=== PATIENT | male | born 1995 | race Caucasian/White ===

== ENCOUNTER 2020-02-28 18:51 | Emergency (ER) | payer OTHER, SELFPAY ==
[2020-02-28 19:02] VITALS: BP 128/70; PULSE 73; RESP 14; TEMP 36.7; O2SAT 97; BMI 26.4
--- NOTE | 2020-02-28 19:23 | ED.SKABFB ---
HPI - Skin/Abscess/Foreign Bdy General Chief complaint: Skin/Abscess/Foreign Body Stated complaint: states has an infection Time Seen by Provider: 02/28/20 19:20 Source: patient Mode of arrival: Ambulatory Limitations: no limitations History of Present Illness HPI narrative: 24M non smoker without chronic medical problems presents with a friend and the chief complaint of a painful red, swollen lump on his right lower back. [place] and a referral to dermatology. He denies fever or chills. He denies any spontaneous drainage or systemic problems. He is here because he can't take the pain anymore. complaint: abscess/boil Onset (ago): day(s) Tetanus up to date: yes Location: back Severity: moderate Quality: aching Pain Consistency: constant Relieving factors: none Associated symptoms: denies other symptoms Treatments prior to arrival: antibiotic Related Data Previous Rx's Medication Instructions Recorded doxycycline hyclate 100 mg PO BID #20 tab 02/28/20 Allergies Allergy/AdvReac Type Severity Reaction Status Date / Time No Known Drug Allergies Allergy Verified 02/28/20 19:02 Review of Systems Constitutional Constitutional: Denies chills, Denies fatigue, Denies fever(s), Denies frequent falls, Denies lethargy and Denies weakness Eyes Eyes: Denies change in vision, Denies eye discharge, Denies irritation and Denies loss of vision ENT Ears, Nose, Mouth, and Throat: Denies change in voice, Denies dizziness, Denies neck pain, Denies sore throat and Denies throat swelling Cardiovascular Cardiovascular: Denies chest pain, Denies irregular heart rhythm, Denies lightheadedness, Denies palpitations, Denies dyspnea, Denies dyspnea on exertion and Denies orthopnea Respiratory Respiratory: Denies cough, Denies dyspnea, Denies dyspnea on exertion and Denies wheezing Gastrointestinal Gastrointestinal: Denies abdominal pain, Denies change in bowel habits, Denies diarrhea, Denies nausea and Denies vomiting Musculoskeletal Musculoskeletal: Denies neck pain and Denies numbness Integumentary/Breasts Skin/Breast: Denies pruritus, Reports erythema, Denies rash, Reports skin pain and Denies wounds Neurologic Neurologic: Denies behavioral changes, Denies confusion, Denies dizziness, Denies frequent falls, Denies loss of vision, Denies numbness and Denies weakness Psychiatric Psychiatric: Denies anxiety, Denies behavioral changes, Denies confusion, Denies depression, Denies homicidal ideation and Denies suicidal ideation Endocrine Endocrine: Denies fatigue, Denies flushing and Denies palpitations Hematologic/Lymphatic Hematologic/Lymphatic: Denies easy bruising Allergic/Immunologic Allergic/Immunologic: Denies urticaria, Denies throat swelling and Denies wheezing Patient History Social History Smoking Status: Unknown if ever smoked Smoking Status: Unknown if ever smoked alcohol intake frequency: holidays/special occasions only Substance Use Type: does not use Exam Narrative Exam Narrative: GEN: AOx3 and in mild distress EYES: Pupils are equal, round, and reactive to light and accommodation. Extraoccular muscles are intact bilaterally. There is no subconjunctival hemorrhage or exudate. CHEST: Lungs are clear to auscultation bilaterally and free of wheezes, rales, or rhonchi. Heart rate is regular rhythm, there are no murmurs, clicks, rubs, or gallops. There is no chest wall tenderness. ABD: Abdomen is soft and nontender. There is no guarding or rebound. Bowel sounds are normal in all 4 quadrants. There is no mass or organomegaly. EXT: Full painless ROM of all extremities with no loss of sensation or strength. SKIN: 2 x 2 cm cutaneous abscess on right lower back with minimal fluctuance and minimal surrounding erythema Warm, pink, and dry. No erythema or rash Initial Vital Signs Initial Vital Signs: Vital Signs Temperature 98.1 F 02/28/20 19:02 Pulse Rate 73 02/28/20 19:02 Respiratory Rate 14 02/28/20 19:02 Blood Pressure 128/70 02/28/20 19:02 Pulse Oximetry 97 02/28/20 19:02 Procedures Abscess I/D I&D #1: Site: back Side (if applicable): right Local Anesthetic: lidocaine 1% and with bicarb Amount of anesthesia used (mL): 4 Technique: incised with #11 blade Amount of fluid expressed (mL): 6 Irrigation: Yes Packing used?: none Course Orders Ordered: Discontinued Medications Lidocaine/Sodium Bicarbonate (Buffered Lidocaine 10 Ml Syr) 10 ml INJ NOW ONE Stop: 02/28/20 19:31 Last Admin: 02/28/20 19:37 Dose: 10 ml Documented by: BERTA Vital Signs Vital signs: Vital Signs - 8 hr 02/28/20 19:02 02/28/20 19:55 Temperature 98.1 F Pulse Rate 73 61 Respiratory Rate 14 12 Blood Pressure 128/70 115/75 Pulse Oximetry 97 97 Discharge Plan Departure Patient Disposition: Home Clinical Impression: Abscess of skin or subcutaneous tissue Qualifiers: Site of cutaneous abscess: trunk Site of cutaneous abscess of trunk: back Qualified Code(s): L02.212 - Cutaneous abscess of back [any part, except buttock] Discharge Date/Time: 02/28/20 19:58 Instructions: DI for Skin Abscess Activity Restrictions/Additional Instructions: *You have been diagnosed with [superficial cutaneous abscess status post incision and drainage] *What to do: *Take medications as directed *Follow up with your primary care provider in 2-3 days, call for an appointment. Let them know you were seen in the Emergency Department and that we ask that you be seen in follow up *Return to ER if you should have any new, worsening or concerning symptoms Prescriptions: New doxycycline hyclate 100 mg tablet 100 mg PO BID Qty: 20 RF: 0
[2020-02-28] MEDS: LIDO 1%/SOD BICARB 8.4% (10ML) 10 ML SYRINGE INJ (19:37)
[2020-02-28 19:55] VITALS: BP 115/75; PULSE 61; RESP 12; O2SAT 97
== END 2020-02-28 19:58 | disposition home or self-care (01) ==
PROVIDERS: Emergency Provider Emergency Medicine
DX: L02.212 Cutaneous abscess of back [any part, except buttock and flank] (principal)
CPT/HCPCS: 10060; 99283

== ENCOUNTER 2020-08-01 19:57 | Emergency (ER) | payer OTHER, SELFPAY ==
[2020-08-01 20:02] VITALS: BP 136/90; PULSE 77; RESP 20; TEMP 36.7; O2SAT 98; BMI 26.4
[2020-08-01] MEDS: IBUPROFEN 400 MG TABLET PO (20:14)
[2020-08-01] MEDS: ACETAMINOPHEN 325 MG TABLET 975 MG PO (20:14)
--- NOTE | 2020-08-01 21:57 | ED_ITS ---
HPI - General Adult General Chief complaint: Upper Respiratory Symptoms Stated complaint: right side swelling of tonsils Time Seen by Provider: 08/01/20 21:45 Source: patient Mode of arrival: Ambulatory Limitations: no limitations History of Present Illness HPI narrative: Otherwise healthy 24-year-old male here for evaluation of right- sided tonsillar swelling and pustules. He has not had any fever. No cough. He does have some swollen lymph nodes on the right side of his neck. Has not tried anything for symptoms prior to arrival. Related Data Previous Rx's Medication Instructions Recorded doxycycline hyclate 100 mg PO BID #20 tab 02/28/20 Allergies Allergy/AdvReac Type Severity Reaction Status Date / Time No Known Drug Allergies Allergy Verified 08/01/20 20:00 Review of Systems Constitutional Constitutional: Denies fever(s) ENT Ears, Nose, Mouth, and Throat: Denies dizziness, Reports sore throat and Denies tongue swelling Cardiovascular Cardiovascular: Denies chest pain and Denies dyspnea Respiratory Respiratory: Denies dyspnea Gastrointestinal Gastrointestinal: Denies abdominal pain Integumentary/Breasts Skin/Breast: Denies rash Neurologic Neurologic: Denies behavioral changes and Denies dizziness Psychiatric Psychiatric: Denies behavioral changes Hematologic/Lymphatic On Anticoagulants: No Allergic/Immunologic Allergic/Immunologic: Denies urticaria and Denies tongue swelling Patient History Medical History Healthy adult Social History Smoking Status: Never smoker Smoking Status: Never smoker alcohol intake frequency: holidays/special occasions only Substance Use Type: does not use Exam Initial Vital Signs Initial Vital Signs: Vital Signs Temperature 98.0 F 08/01/20 20:02 Pulse Rate 77 08/01/20 20:02 Respiratory Rate 20 08/01/20 20:02 Blood Pressure 136/90 08/01/20 20:02 Pulse Oximetry 98 08/01/20 20:02 Const General: cooperative and comfortable Limitations: mental status not altered HENMT Head: normal to inspection and normocephalic Ears: TM's normal bilaterally Nose: external nose normal Face and sinus: normal facial exam Mouth: oral mucosae normal, lip normal and tongue normal Teeth and gingiva: dentition normal Throat: uvula midline and other (Exudates and ulcerations for right tonsil) Neck Lymphatic: lymphadenopathy (Right anterior cervical) Resp Effort & Inspection: normal respiratory effort Cardio Rate: regular rate Course Orders Ordered: ED Orders 08/01/20 20:49 Throat Culture Stat Discontinued Medications Acetaminophen (Acetaminophen 325 Mg Tablet) 975 mg PO NOW ONE Stop: 08/01/20 20:08 Last Admin: 08/01/20 20:14 Dose: Not Given Documented by: LOLA Acetaminophen (Acetaminophen 325 Mg Tablet) 975 mg PO NOW ONE Stop: 08/01/20 20:12 Last Admin: 08/01/20 20:14 Dose: 975 mg Documented by: EMERITA Dexamethasone (Dexamethasone 4 Mg Tablet) 12 mg PO NOW ONE Stop: 08/01/20 21:59 Last Admin: 08/01/20 22:02 Dose: 12 mg Documented by: EMERITA Ibuprofen (Ibuprofen 400 Mg Tablet) 400 mg PO NOW ONE Stop: 08/01/20 20:08 Last Admin: 08/01/20 20:14 Dose: Not Given Documented by: LOLA Ibuprofen (Ibuprofen 400 Mg Tablet) 400 mg PO NOW ONE Stop: 08/01/20 20:12 Last Admin: 08/01/20 20:14 Dose: 400 mg Documented by: EMERITA Penicillin G Benzathine (Penicillin G Benzathine 1,200,000 Unit/2 Ml Syringe) 1,200,000 unit IM NOW ONE Stop: 08/01/20 21:59 Last Admin: 08/01/20 22:02 Dose: 1,200,000 unit Documented by: EMERITA Vital Signs Vital signs: Vital Signs - 8 hr 08/01/20 20:02 08/01/20 22:10 Temperature 98.0 F Pulse Rate 77 77 Respiratory Rate 20 20 Blood Pressure 136/90 121/78 Pulse Oximetry 98 96 Medical Decision Making Lab Data Lab results reviewed: Yes I reviewed the patient's lab results. Labs: Point of Care Testing Rapid Strep A Negative Point of care testing: Point of Care Testing Rapid Strep A Negative MDM Narrative Medical decision making narrative: Rapid strep negative however he does have pustules and exudates on his right tonsil. Also has right-sided lymphadenopathy. I feel given his presentation than treating him for strep presumptively would not be unreasonable. I discussed this with him and he did agree to this. He opted for an IM injection of Bicillin. He does have swelling on the right side compared to the left however his uvula is midline and the do have low suspicion for peritonsillar abscess today however he was given return precautions for this. Expressed understanding and agreement. Discharge Plan Departure Patient Disposition: Home Clinical Impression: Pharyngitis Instructions: Sore Throat Activity Restrictions/Additional Instructions: You were presumptively treated today with antibiotics for strep throat. You can take Tylenol and/or ibuprofen for any fevers or body aches. Contact your medical department for a follow-up. Return to the emergency department for any new or worsening symptoms Prescriptions: No Action doxycycline hyclate 100 mg tablet 100 mg PO BID Qty: 20 RF: 0
[2020-08-01] MEDS: PENICILLIN G BENZATHINE 1,200,000 UNIT/2 ML SYRINGE 1200000 UNIT IM (22:02)
[2020-08-01] MEDS: dexAMETHasone 4 MG TABLET 12 MG PO (22:02)
[2020-08-01 22:10] VITALS: BP 121/78; PULSE 77; RESP 20; O2SAT 96
== END 2020-08-01 22:10 | disposition home or self-care (01) ==
PROVIDERS: Emergency Provider Emergency Medicine
DX: J02.9 Acute pharyngitis, unspecified (principal); L08.9 Local infection of the skin and subcutaneous tissue, unspecified
CPT/HCPCS: 87070; 87880; 96372; 99283; J0561

== ENCOUNTER → 2022-01-12 13:12 | Outpatient (ROUT) | payer OTHER, SELFPAY ==
[2022-01-12 14:39] LABS: COVID-19 CEPHEID PCR (VTM/NP) Negative (Negative)
== END ==
PROVIDERS: PCP Family Medicine; Visit Provider Otolaryngology
DX: Z20.822 Contact with and (suspected) exposure to COVID-19 (principal)
CPT/HCPCS: U0003; U0005

== ENCOUNTER 2022-01-14 10:47 | Day surgery (SDC) | payer OTHER, SELFPAY ==
[2022-01-04 12:13] VITALS: BMI 26.3
[2022-01-14 11:06] VITALS: BP 127/75; PULSE 79; RESP 16; TEMP 37.1; O2SAT 100
[2022-01-14 11:08] VITALS: BMI 26.3
[2022-01-14] MEDS: LACTATED RINGERS 1,000 ML 42 ML IV (11:15)
--- NOTE | 2022-01-14 12:12 | PM.PREOP ---
Pre-operative Note Interval Note History & Physical reviewed/Exam performed by Physician: Yes Changes to H&P: No
--- NOTE | 2022-01-14 12:12 | PM.OP.1 ---
Operative Date/Time/Diagnoses Date of procedure: 01/14/22 Time of procedure: 13:06 Pre-op diagnosis: Recurrent acute tonsillitis, tonsillar hypertrophy, throat pain, respiratory obstruction Post-op diagnosis: same (with mild adenoid hypertrophy) Procedure & Clinicians Procedure: Tonsillectomy and adenoidectomy Same procedure as scheduled: Yes Indications: 26-year-old male with the above diagnoses incompletely managed with medical therapy presents the above procedure. Following discussion of the material risks benefits complications and alternatives, he elected to proceed. Surgeon: Carrillo Ramírez Click Yes if Unassisted: Yes Anesthesia Type: General and Local Operative Notes Findings: Intact palate, single uvula, 3+ tonsils chronically inflamed with stones, 2+ adenoids Estimated Blood Loss (mL): 15 Procedure in detail: Following identification and confirmation of consent the patient was brought to the operating room suite and placed in the supine position. General endotracheal anesthesia was administered. A head wrap, shoulder roll, and mouth gag were placed and a red rubber catheter was inserted through the nostril and out the mouth to retract the soft palate. Partially obstructive adenoid tissue was ablated with suction electrocautery on a setting of 40, without injury to the eustachian tube orifices or choana. The left tonsil was retracted medially and suction electrocautery on a setting of 30 was used to dissect the tonsil in a subcapsular plane, followed by hemostasis with the same. This process was repeated on the right side with identical findings. The tonsillar fossae were superficially infiltrated bilaterally with 2% lidocaine 1 100,000 epinephrine. Mouth gag and rubber catheter were removed and the patient was extubated in the operating room and taken to the recovery room in stable condition without known complication. Complications: none Post-operative Condition: stable Disposition: same day surgery Plan for aftercare: Push fluids, alternate Tylenol and Advil every 3 hours for baseline pain control, oxycodone for breakthrough pain. Soft diet 2 full weeks, no heavy lifting or straining 2 weeks.
--- NOTE | 2022-01-14 12:38 | SUR.OPER ---
Supine on padded OR bed, head on gel doughnut , arms secured on padded arm boards at <90 degrees abduction, legs uncrossed, safety belt at thigh, tape over blanket over lower legs.
[2022-01-14] MEDS: LIDOCAINE 2% W/EPI INJ 20 ML INJ (12:48)
[2022-01-14 13:14] VITALS: BP 107/57; PULSE 91; RESP 13; TEMP 36.6; O2SAT 99
[2022-01-14 13:19] VITALS: BP 125/74; PULSE 76; RESP 11; O2SAT 98
[2022-01-14] MEDS: HYDROMORPHONE 2 MG INJ IV (13:21)
[2022-01-14] MEDS: ONDANSETRON 4 MG/2 ML INJ IV (13:21)
[2022-01-14 13:28] VITALS: BP 135/61; PULSE 83; RESP 16; O2SAT 99
[2022-01-14] MEDS: OXYCODONE IR 5 MG TABLET PO (13:32)
[2022-01-14 13:33] VITALS: BP 122/71; PULSE 68; RESP 11; O2SAT 100
[2022-01-14 13:43] VITALS: BP 122/65; PULSE 68; RESP 16; O2SAT 98
== END 2022-01-14 14:02 | disposition home or self-care (01) ==
PROVIDERS: PCP Family Medicine; Referring Provider Otolaryngology; Visit Provider Otolaryngology
PROC: (CPT 42821; principal; 2022-01-14 12:00)
DX: J03.91 Acute recurrent tonsillitis, unspecified (principal); J35.3 Hypertrophy of tonsils with hypertrophy of adenoids; J98.8 Other specified respiratory disorders
CPT/HCPCS: 42821; J1100; J1170; J2250; J2405; J2704; J3010

== ENCOUNTER 2022-01-17 09:23 | Emergency (ER) | payer OTHER, SELFPAY ==
[2022-01-17 09:34] VITALS: BP 143/82; PULSE 64; RESP 18; O2SAT 99
--- NOTE | 2022-01-17 09:42 | PC.NURSE ---
tonsil area reddened and swollen with some swelling to both sides of jaw
--- NOTE | 2022-01-17 10:27 | ED_ITS ---
HPI - General Adult General Chief complaint: Dental/Oral Stated complaint: Severe pain after getting tonsils removed-puking Time Seen by Provider: 01/17/22 09:27 Source: patient Mode of arrival: Ambulatory Limitations: no limitations History of Present Illness HPI narrative: This is a healthy 26-year-old male status post tonsillectomy on 01/14/2022 for recurrent tonsillitis and hypertrophy. Patient states since then he is had persistent pain and states that last night he had vomiting twice. He states he has not had any bleeding other than with the vomiting states it was very small amount with no persistent bleeding. Patient denies fevers or chills. He states it feels swollen his throat sort of seems to increase in decrease in the level of swelling. Patient denies any difficulty swallowing he has been able to take his oral pain medication which is oxycodone in tablet form every 4 hours and Tylenol which he is taking 1000 mg every 6 hours. Patient notes that he has only 2 more tablets of pain medication left. He states it has been helpful but does not resolve his pain is much as he would like. Patient states no other prior surgeries. No other daily medications besides temazepam as needed for anxiety. No known drug allergies. No tobacco, occasional alcohol, no illicit. Related Data Home Medications Medication Instructions Recorded Confirmed temazepam 15 mg capsule (Restoril) 15 mg PO BEDTIME 01/04/22 01/14/22 Previous Rx's Medication Instructions Recorded dexamethasone 1 mg/mL drops See Rx Instructions .Route 01/17/22 (concentrate) .COMPLEX #60 mL oxycodone 5 mg tablet 5 mg PO Q4H PRN pain #10 tabs 01/17/22 Allergies Allergy/AdvReac Type Severity Reaction Status Date / Time No Known Drug Allergies Allergy Verified 01/14/22 10:59 Review of Systems Review of Systems ROS Unobtainable: All systems reviewed & are unremarkable except as noted in HPI and below Patient History Medical History Healthy adult Recurrent tonsillitis Surgical History Alabaster teeth extracted Social History Smoking Status: Never smoker alcohol intake: current Smoking Status: Never smoker alcohol intake frequency: holidays/special occasions only Substance Use Type: does not use Exam Narrative Exam Narrative: GEN: well nourished, well appearing male, alert and oriented x 3, patient appears to be in mild distress. Patient is seated comfortably sitting back on the bed. HEENT: Atraumatic, pupils are equal round reactive to light, extraocular moveme nts are intact, nares are clear, TMs are clear with no fluid, there is no conjunctival pallor. Patient throat has a white eschar no obvious bleeding or oozing, uvula slightly swollen and midline, no surrounding swelling or erythema is appreciated. Patient's tongue, lips do not appear swollen. Patient is able to speak but is slightly hoarse, no muffled voice. No difficulty swallowing secretions. No masses or swelling of the neck or face her appreciated, no warmth or erythema, patient has slight tenderness submandibularly on exam bilaterally. HEART: Regular rate and rhythm without murmur, clicks, rubs. LUNGS:Lungs clear to auscultation, no wheezes, rales, crackles, chest moves symmetrically ABD:bowel sounds normal, soft, non-tender, no guarding, rebound, rigidity, no masses noted, no hepatosplenomegaly MSCL: Non-tender, no muscle atrophy, muscles strength 5/5 upper and lower extremities, full range of motion, normal gait NEURO:CN 2-12 intact, sensation normal Initial Vital Signs Initial Vital Signs: Vital Signs Pulse Rate 64 01/17/22 09:34 Respiratory Rate 18 01/17/22 09:34 Blood Pressure 143/82 H 01/17/22 09:34 Pulse Oximetry 99 01/17/22 09:34 Oxygen Delivery Method 01/17/22 09:34 Course Orders Ordered: Discontinued Medications Dexamethasone (Dexamethasone 10 Mg/Ml Vial) 10 mg IV NOW ONE Stop: 01/17/22 11:18 Last Admin: 01/17/22 11:55 Dose: 10 mg Documented By: YOGESH Sodium Chloride (Normal Saline 0.9%) 1,000 mls @ 1,000 mls/hr IV BOLUS ONE Stop: 01/17/22 11:58 Last Infusion: 01/17/22 11:56 Dose: 1,000 mls/hr Documented By: Admin: 01/17/22 11:15 Dose: 1,000 mls/hr Documented By: YOGEHS Ketorolac Tromethamine (Ketorolac 30 Mg/Ml Vial) 30 mg IV NOW ONE Stop: 01/17/22 11:00 Last Admin: 01/17/22 11:16 Dose: 30 mg Documented By: YOGESH Ondansetron HCl (Ondansetron 4 Mg/2 Ml Inj) 4 mg IV NOW ONE Stop: 01/17/22 11:00 Last Admin: 01/17/22 11:16 Dose: 4 mg Documented By: YOGESH Consultations Consultation #1: Dr. Dustin Neely, ENT on-call for Dr. Ramírez would recommend Decadron, 4 mg tablets, 3 tablets p.o. q.day x3 days, 2 tablets p.o. q.day x2 days, then 1 tablet p.o. q.day x2 days along with ibuprofen and Tylenol alternating will often be quite helpful. Time: 11:16 Vital Signs Vital signs: Vital Signs - 8 hr 01/17/22 09:34 Pulse Rate 64 Respiratory Rate 18 Blood Pressure 143/82 H Pulse Oximetry 99 Oxygen Delivery Method Room Air Medical Decision Making [facility] Narrative Medical decision making narrative: This is a 26-year-old male with complaint of post tonsillectomy pain with 2 episodes of vomiting that he states seemed to be from increased pain, patient had very small amount of blood with emesis. Has not had any persistent he does have some slight swelling of his uvula but overall has reassuring exam. Plan for fluids, antiemetics and pain medication. Discussed with ENT if steroids would be appropriate option for this patient. They do recommend regimen as below in the discharge summary. Patient had some improvement with pain. Given a short-term pain medication, continue Tylenol ibuprofen and dexamethasone. Return precautions discussed. Discharge Plan Departure Patient Disposition: Home Clinical Impression: Post-tonsillectomy pain Instructions: DI for Tonsillectomy-Adult Activity Restrictions/Additional Instructions: Follow-up with Dr. Ramírez in the next week. Call to see if they would like to see you [id number]. You may continue Tylenol up to a 1000 mg every 6 hours. Maximum Tylenol in 24 hours would be 4000 mg. You may also take ibuprofen up to 600 mg every 6 hours needed for pain alternating with Tylenol and can take this with narcotic pain medication. You may continue with oxycodone 1-2 tablets every 4 hours as needed. You may take dexamethasone as directed until gone. Prescription sent to [facility] in [place]. Please return for fevers, recurrent vomiting or persistent vomiting, bleeding, lightheadedness or passing out, increasing swelling of your throat, difficulty swallowing secretions or saliva, new redness, swelling or other changes or other new or concerning changes. Prescriptions: New dexamethasone 1 mg/mL drops See Rx Instructions .ROUTE .COMPLEX Qty: 60 0RF Rx Instructions: 12 mg p.o. q.day x3 days, then 8 mg p.o. q.day x2 days, then 4 mg p.o. q.day x2 days oxycodone 5 mg tablet 5 mg PO Q4H PRN (Reason: pain) Qty: 10 0RF No Action temazepam [Restoril] 15 mg Capsule 15 mg PO BEDTIME Referrals: Carrillo Ramírez MD [Physician] - Jaxson Stein DO [Primary Care Provider] - Visit Report Forms: Patient Portal/API
[2022-01-17 10:35] VITALS: PULSE 61; O2SAT 98
[2022-01-17 11:00] VITALS: PULSE 65; O2SAT 100
[2022-01-17] MEDS: SODIUM CHLORIDE 0.9% 1,000 ML 1000 ML IV (11:15)
[2022-01-17] MEDS: ONDANSETRON 4 MG/2 ML INJ IV (11:16)
[2022-01-17] MEDS: KETOROLAC 30 MG/ML VIAL IV (11:16)
[2022-01-17 11:30] VITALS: PULSE 54; O2SAT 96
[2022-01-17] MEDS: DEXAMETHASONE 10 MG/ML VIAL IV (11:55)
[2022-01-17 12:04] VITALS: BP 130/82; PULSE 65; RESP 18; TEMP 36.6; O2SAT 99
== END 2022-01-17 12:04 | disposition home or self-care (01) ==
PROVIDERS: Emergency Provider Emergency Medicine; PCP Family Medicine
DX: G89.18 Other acute postprocedural pain (principal)
CPT/HCPCS: 36415; 96361; 96374; 96375; 99284; J1100; J1885; J2405

== ENCOUNTER 2022-01-27 07:37 | Emergency (ER) | payer OTHER, SELFPAY ==
[2022-01-27 07:44] VITALS: BP 126/83; PULSE 67; RESP 18; TEMP 36.2; O2SAT 99; BMI 27.1
--- NOTE | 2022-01-27 07:52 | ED.GENADULT ---
HPI - General Adult General Chief complaint: Upper Respiratory Symptoms Stated complaint: Bleeding after Tonselectomy (13 days ago) Time Seen by Provider: 01/27/22 07:47 Source: patient Mode of arrival: Ambulatory History of Present Illness HPI narrative: Otherwise healthy 26-year-old gentleman who had tonsillectomy with Dr. Ramírez 13 days ago comes in with concerns for bleeding. He has been healing nicely and yesterday morning noticed more mucus in the back of his throat and after clearing his throat noticed some pink tinged sputum and may be a small amount of bleeding. He ate a popsicle and it resolved spontaneously. There was no additional bleeding over the course of the day. He has resumed eating but continues to avoid hard and crunchy foods. Had a similar episode this morning not quite is impressive. After talking to the ENT office yesterday, they had requested that he come to the emergency room for any bleeding. He is following instructions. Again, no active bleeding, pain is controlled with ibuprofen, he is having no difficulty with swallowing, fevers, cough, chest pain, nausea, vomiting, diarrhea, abdominal pain. Related Data Home Medications Medication Instructions Recorded Confirmed temazepam 15 mg capsule (Restoril) 15 mg PO BEDTIME 01/04/22 01/14/22 Previous Rx's Medication Instructions Recorded dexamethasone 1 mg/mL drops See Rx Instructions .Route 01/17/22 (concentrate) .COMPLEX #60 mL oxycodone 5 mg tablet 5 mg PO Q4H PRN pain #10 tabs 01/17/22 Allergies Allergy/AdvReac Type Severity Reaction Status Date / Time No Known Drug Allergies Allergy Verified 01/14/22 10:59 Review of Systems Review of Systems Narrative: Remainder of complete review of systems is otherwise unremarkable except for that included in the HPI. Patient History Medical History Healthy adult Surgical History History of tonsillectomy [place] teeth extracted Social History Smoking Status: Never smoker alcohol intake: current Smoking Status: Never smoker alcohol intake frequency: holidays/special occasions only Substance Use Type: does not use Exam Initial Vital Signs Initial Vital Signs: Vital Signs Temperature 97.2 F L 01/27/22 07:44 Pulse Rate 67 01/27/22 07:44 Respiratory Rate 18 01/27/22 07:44 Blood Pressure 126/83 01/27/22 07:44 Pulse Oximetry 99 01/27/22 07:44 Oxygen Delivery Method 01/27/22 07:44 General: Alert appropriate in no acute distress HEENT: Tonsillar pillars with appropriate healing, minor degree over both tonsillar pillar with punctate lesion that has a adherent clot lateral aspect left tonsillar pillar. Overall both surgical sites are healing nicely with appropriate amounts of eschar. He is pain-free, there is no active bleeding, has no cervical adenopathy Respiratory: Able to speak in full sentences, no obvious respiratory distress Skin: No obvious rashes, warm and dry Neurologic: Grossly intact no obvious asymmetries or abnormalities Psych: appropriate insight and affect, cooperative Course Vital Signs Vital signs: Vital Signs - 8 hr 01/27/22 07:44 Temperature 97.2 F L Pulse Rate 67 Respiratory Rate 18 Blood Pressure 126/83 Pulse Oximetry 99 Oxygen Delivery Method Room Air Medical Decision Making [facility] Narrative Medical decision making narrative: 26-year-old gentleman 13 days post tonsillectomy with minor bleeding/pink tinged sputum yesterday morning and this morning. Both resolved spontaneously. No active bleeding on arrival in the emergency room. Reassurance is given. Requested that he continue with the ?non crunchy? diet. He is otherwise doing quite well and recovering nicely. Questions are answered and he is safe for home discharge Discharge Plan Departure Patient Disposition: Home Clinical Impression: Secondary post tonsillectomy hemorrhage Instructions: DI for Tonsillectomy-Adult Prescriptions: No Action temazepam [Restoril] 15 mg Capsule 15 mg PO BEDTIME dexamethasone 1 mg/mL drops See Rx Instructions .ROUTE .COMPLEX Qty: 60 0RF Rx Instructions: 12 mg p.o. q.day x3 days, then 8 mg p.o. q.day x2 days, then 4 mg p.o. q.day x2 days oxycodone 5 mg tablet 5 mg PO Q4H PRN (Reason: pain) Qty: 10 0RF Referrals: Jaxson Stein DO [Primary Care Provider] -
--- NOTE | 2022-01-27 08:00 | PC.NURSE ---
assmt done by
== END 2022-01-27 08:05 | disposition home or self-care (01) ==
PROVIDERS: Emergency Provider Emergency Medicine; PCP Family Medicine
DX: J95.830 Postprocedural hemorrhage of a respiratory system organ or structure following a respiratory system procedure (principal)
CPT/HCPCS: 99281